=== PATIENT | male | born 1980 | race Caucasian/White ===

== ENCOUNTER 2017-05-24 18:34 | Emergency (ER) | payer BC, OTHER ==
[2017-05-24] MEDS ORDERED: Sodium Chloride 0.9% 1,000 ML IV ONE (19:07)
[2017-05-24] MEDS ORDERED: Ketorolac 30 MG/ML SDV IVPUSH ONE (19:07)
[2017-05-24] MEDS ORDERED: Ondansetron 4 MG/2 ML SDV IVPUSH ONE ×2 (19:07→20:46)
--- NOTE | 2017-05-24 19:08 | EDM.PDOC ---
ED HPI GENERAL MEDICAL PROBLEM - General Chief Complaint: Flank Pain Stated Complaint: RT ABDOMINAL/BACK PAIN Time Seen by Provider: 05/24/17 19:08 Source of Information: Reports: Patient - History of Present Illness INITIAL COMMENTS - FREE TEXT/NARRATIVE: HISTORY AND PHYSICAL: History of present illness: [Patient presents with right flank pain radiating around the right abdomen rates 8 out of 10 with nausea and vomiting on arrival no fever chills sweats ] Review of systems: As per history of present illness and below otherwise all systems reviewed and negative. Past medical history: As per history of present illness and as reviewed below otherwise noncontributory. Surgical history: As per history of present illness and as reviewed below otherwise noncontributory. Social history: No reported history of drug or alcohol abuse. Family history: As per history of present illness and as reviewed below otherwise noncontributory. Physical exam: HEENT: Atraumatic, normocephalic, pupils reactive, negative for conjunctival pallor or scleral icterus, mucous membranes moist, throat clear, neck supple, nontender, trachea midline. Lungs: Clear to auscultation, breath sounds equal bilaterally, chest nontender. Heart: S1S2, regular, negative for clicks, rubs, or JVD. Abdomen: Soft, nondistended, mild tenderness right upper quadrant on deep palpation no guarding or rebound. Negative for masses or hepatosplenomegaly. Negative for costovertebral tenderness. Pelvis: Stable nontender. Genitourinary: Deferred. Rectal: Deferred. Extremities: Atraumatic, negative for cords or calf pain. Neurovascular unremarkable. Neuro: Awake, alert, oriented. Cranial nerves II through XII unremarkable. Cerebellum unremarkable. Motor and sensory unremarkable throughout. Exam nonfocal. Diagnostics: [CBC CMP UA with culture CT abdomen with and without contrast ] Therapeutics: [Normal saline 1 L Zofran 8 mg IV Toradol 30 mg IV Solu-Medrol 125 mg IV Flomax 0 point 4 milligrams by mouth [place] Zofran Filter urine Wrist current stone for pathology with primary care or urology ] Impression: 3 mm stone right UVJ [Right flank pain] Definitive disposition and diagnosis as appropriate pending reevaluation and review of above. rt flank Pain Score (Numeric/FACES): 8 - Related Data Allergies Allergy/AdvReac Type Severity Reaction Status Date / Time No Known Allergies Allergy Verified 05/24/17 18:53 Home Meds: Home Meds . [No Known Home Meds] 05/24/17 [History] Past Medical History - Past Surgical History HEENT Surgical History: Reports: Tonsillectomy GI Surgical History: Reports: Other (See Below) Other GI Surgeries/Procedures: intestinal removal. Musculoskeletal Surgical History: Reports: Other (See Below) Other Musculoskeletal Surgeries/Procedures:: Rotar cuff Social & Family History - Family History Family Medical History: Noncontributory - Tobacco Use Smoking Status *Q: Never Smoker - Recreational Drug Use Recreational Drug Use: No ED ROS GENERAL - Review of Systems Review Of Systems: ROS reveals no pertinent complaints other than HPI. ED EXAM, GENERAL - Physical Exam Exam: See Below Course - Vital Signs Last Recorded V/S: Last Vital Signs Temp 97.5 F 05/24/17 21:38 Pulse 87 05/24/17 21:38 Resp 17 05/24/17 21:38 BP 143/78 H 05/24/17 21:38 Pulse Ox 97 05/24/17 21:38 - Orders/Labs/Meds Orders: Active Orders 24 hr Category Date Time Status Abdomen Pelvis w wo Cont [CT] Stat Exams 05/24/17 19:07 Taken CULTURE URINE [RM] Stat Lab 05/24/17 22:02 Received Labs: Laboratory Tests 05/24/17 05/24/17 05/24/17 Range/Units 19:41 19:41 22:02 WBC 10.03 (4.0-11.0) K/uL RBC 5.37 (4.50-5.90) M/uL Hgb 16.3 (13.0-17.0) g/dL Hct 46.7 (38.0-50.0) % MCV 87.0 (80.0-98.0) fL MCH 30.4 (27.0-32.0) pg MCHC 34.9 (31.0-37.0) g/dL RDW Std Deviation 43.0 (28.0-62.0) fl RDW Coeff of Sammy 14 (11.0-15.0) % Plt Count 324 (150-400) K/uL MPV 9.50 (7.40-12.00) fL Neut % (Auto) 65.0 (48.0-80.0) % Lymph % (Auto) 25.3 (16.0-40.0) % [place] % (Auto) 6.9 (0.0-15.0) % Eos % (Auto) 2.5 (0.0-7.0) % Baso % (Auto) 0.3 (0.0-1.5) % Neut # (Auto) 6.5 H (1.4-5.7) K/uL Lymph # (Auto) 2.5 H (0.6-2.4) K/uL [place]pie # (Auto) 0.7 (0.0-0.8) K/uL Eos # (Auto) 0.3 (0.0-0.7) K/uL Baso # (Auto) 0.0 (0.0-0.1) K/uL Nucleated RBC % 0.0 /100WBC Nucleated RBCs # 0 K/uL Sodium 142 (136-146) mmol/L Potassium 3.8 (3.5-5.1) mmol/L Chloride 108 (98-110) mmol/L Carbon Dioxide 23 (21-31) mmol/L BUN 14 (6.0-23.0) mg/dL Creatinine 1.3 (0.6-1.5) mg/dL Est Cr Clr Drug Dosing 78.56 mL/min Estimated GFR (MDRD) > 60.0 ml/min Glucose 109 (60-110) mg/dL Calcium 9.4 (8.8-10.8) mg/dL Total Bilirubin 0.9 (0.1-1.5) mg/dL AST 53 H (5-40) IU/L ALT 104 H (8-54) IU/L Alkaline Phosphatase 59 (40-150) Troponin I < 0.10 (0.0-0.29) NG/ML Total Protein 7.6 (6.0-8.0) g/dL Albumin 4.6 (3.5-5.0) g/dL Globulin 3.0 (2.0-3.5) g/dL Albumin/Globulin Ratio 1.5 (1.3-2.8) Amylase 37 (10-90) U/L Lipase 17 (7-80) U/L Urine Color YELLOW Urine Appearance HAZY Urine pH 6.0 (5.0-8.0) Ur Specific [place] 1.010 (1.001-1.035) Urine Protein NEGATIVE (NEGATIVE) mg/dL Urine Glucose (UA) NEGATIVE (NEGATIVE) mg/dL Urine Ketones 15 H (NEGATIVE) mg/dL Urine Occult Blood LARGE H (NEGATIVE) Urine Nitrite NEGATIVE (NEGATIVE) Urine Bilirubin NEGATIVE (NEGATIVE) Urine Urobilinogen 0.2 (<2.0) EU/dL Ur Leukocyte Esterase NEGATIVE (NEGATIVE) Urine RBC 15-20 (0-2/HPF) Urine WBC 0-1 (0-5/HPF) Ur Epithelial Cells RARE (NONE-FEW) Urine Bacteria FEW (NEGATIVE) Urine Yeast RARE Meds: Medications Discontinued Medications Generic Name Dose Route Start Last Admin Trade Name Freq PRN Reason Stop Dose Admin Sodium Chloride 1,000 mls @ 999 mls/hr 05/24/17 19:07 05/24/17 19:41 Normal Saline IV 05/24/17 20:07 999 mls/hr STAT ONE Administration Iopamidol 100 ml 05/24/17 20:26 05/24/17 20:32 Isovue Multipack-370 (76%) IVPUSH 05/24/17 20:27 100 ml ONETIME ONE Administration Ketorolac Tromethamine 30 mg 05/24/17 19:07 05/24/17 19:41 Toradol IVPUSH 05/24/17 19:08 30 mg ONETIME ONE Administration Methylprednisolone Sodium Succinate 125 mg 05/24/17 21:47 05/24/17 22:20 Solu-Medrol IVPUSH 05/24/17 21:48 125 mg ONETIME ONE Administration Morphine Sulfate 2 mg 05/24/17 19:46 05/24/17 19:54 Morphine IVPUSH 05/24/17 19:47 2 mg ONETIME ONE Administration Morphine Sulfate 2 mg 05/24/17 20:39 05/24/17 20:44 Morphine IVPUSH 05/24/17 20:40 2 mg ONETIME ONE Administration Ondansetron HCl 8 mg 05/24/17 19:07 05/24/17 19:41 Zofran IVPUSH 05/24/17 19:08 8 mg ONETIME ONE Administration Ondansetron HCl 4 mg 05/24/17 20:46 05/24/17 20:48 Zofran IVPUSH 05/24/17 20:47 4 mg ONETIME ONE Administration Tamsulosin HCl 0.4 mg 05/24/17 21:47 05/24/17 22:20 Flomax PO 05/24/17 21:48 0.4 mg ONETIME ONE Administration Departure - Departure Time of Disposition: 22:25 Disposition: Home, Self-Care 01 Condition: Good Clinical Impression: Ureteral stone - Discharge Information Referrals: PCP,None [Primary Care Provider] - Forms: ED Department Discharge Additional Instructions: Medication as prescribed Return if symptoms persist or worsen or if fever chills sweats develop intractable vomiting or intractable pain with also prompt return Filter urine return stone for pathology to primary care or urology numbers are provided below [facility] - Primary Care [address] [place], [place] [id number] [facility] - Urology [address] [place] [address] The following information is given to patients seen in the emergency department who are being discharged to home. This information is to outline your options for follow-up care. We provide all patients seen in our emergency department with a follow-up referral. The need for follow-up, as well as the timing and circumstances, are variable depending upon the specifics of your emergency department visit. If you don't have a primary care physician on staff, we will provide you with a referral. We always advise you to contact your personal physician following an emergency department visit to inform them of the circumstance of the visit and for follow-up with them and/or the need for any referrals to a consulting specialist. The emergency department will also refer you to a specialist when appropriate. This referral assures that you have the opportunity for follow-up care with a specialist. All of these measure are taken in an effort to provide you with optimal care, which includes your follow-up. Under all circumstances we always encourage you to contact your private physician who remains a resource for coordinating your care. When calling for follow-up care, please make the office aware that this follow-up is from your recent emergency room visit. If for any reason you are refused follow-up, please contact the [facility] emergency department at and asked to speak to the emergency department charge nurse. - My Orders Last 24 Hours: My Active Orders 05/24/17 19:07 Abdomen Pelvis w wo Cont [CT] Stat 05/24/17 22:02 CULTURE URINE [RM] Stat - Assessment/Plan Last 24 Hours: My Active Orders 05/24/17 19:07 Abdomen Pelvis w wo Cont [CT] Stat 05/24/17 22:02 CULTURE URINE [RM] Stat
[2017-05-24] MEDS ORDERED: Morphine 2 MG/ML Syringe IVPUSH ONE ×2 (19:46→20:39)
[2017-05-24 20:07] LABS: CHLORIDE,CL 108 mmol/L (98-110); SODIUM,NA 142 mmol/L (136-146)
[2017-05-24] MEDS ORDERED: Iopamidol 755 MG/ML 200 ML Multipack Bottle IVPUSH ONE (20:26)
[2017-05-24] MEDS ORDERED: Tamsulosin 0.4 MG Cap.ER PO ONE (21:47)
[2017-05-24] MEDS ORDERED: methylPREDNISolone Sodium Succinate 125 MG/2 ML SDV IVPUSH ONE (21:47)
--- NOTE | 2017-05-25 15:59 | CT ---
EXAM DATE: 05/24/17 PATIENT'S AGE: 36 Patient: ALLI NARANJO Facility: [place], [place] Site . Site : [id number] Study: CT Abdomen/Pelvis W/ and W/O Cont [id number]/[id number] 8:48:00 PM Ordering Physician: Emmanuel Mcguire Final Report: Indication: Right flank pain. Technique: Contiguous axial images were obtained from the domes the diaphragm through the pubic symphysis. Intravenous contrast was not administered as the study is performed according to stone protocol. 3D rendering, including image post processing was performed on an independent workstation. Findings: There is a mild right hydro ureter and a 0.3 cm stone is noted in the distal ureter proximal to the right UV junction. The unenhanced left kidney, left ureter and urinary bladder are unremarkable. The prostate gland and seminal vesicles are unremarkable. The liver is diffusely decreased in attenuation relative to the spleen reflecting fatty infiltration. The gallbladder, pancreas and spleen are unremarkable. A splenule is noted adjacent to the spleen. There is a ventral/umbilical hernia. Surgical chain sutures are noted in the sigmoid colon and there are diverticular changes noted of the descending colon and sigmoid colon without CT evidence of diverticulitis. There is no abdominal or pelvic ascites. Impression: 1. 0.3 cm distal right ureteral stone just proximal to the UV right UV junction with mild right hydro ureter. 2. Hepatic steatosis. 3. Diverticulosis without CT evidence of diverticulitis. Please note that all CT scans at this facility use dose modulation, iterative reconstruction, and/or weight-based dosing when appropriate to reduce radiation dose to as low as reasonably achievable. Dictated by Veronica Mensah MD @ May 24 2017 9:21PM (Electronic Signature) Report Signed by Proxy. RC
== END 2017-05-24 22:36 | disposition home or self-care (01) ==
LOC: MW.ED 18:34
DX: N20.1 Calculus of ureter (principal)
CPT/HCPCS: 74178; 80053; 81001; 82150; 83690; 84484; 85025; 87086; 96361; 96374; 96375; 96376; 99284; A9270; J1885; J2270; J2405; J2930; J7040; Q9967

== ENCOUNTER 2017-05-26 05:52 | Emergency (ER) | payer OTHER ==
[2017-05-26] MEDS ORDERED: HYDROmorphone 2 MG/ML Syringe IVPUSH ONE ×2 (06:06→06:50)
[2017-05-26] MEDS ORDERED: Ondansetron 4 MG/2 ML SDV IVPUSH ONE (06:06)
[2017-05-26] MEDS ORDERED: Sodium Chloride 0.9% 1,000 ML IV ONE ×2 (06:06→08:49)
[2017-05-26] MEDS ORDERED: methylPREDNISolone Sodium Succinate 125 MG/2 ML SDV IVPUSH ONE (06:07)
[2017-05-26] MEDS ORDERED: Tamsulosin 0.4 MG Cap.ER PO ONE (06:07)
--- NOTE | 2017-05-26 06:11 | EDM.PDOC ---
ED HPI GENERAL MEDICAL PROBLEM - General Chief Complaint: Flank Pain Stated Complaint: KIDNEY STONES Time Seen by Provider: 05/26/17 06:08 Source of Information: Reports: Patient - History of Present Illness INITIAL COMMENTS - FREE TEXT/NARRATIVE: HISTORY AND PHYSICAL: History of present illness: [Presents with pain in the right lower quadrant he was seen the evening of over 3 mm stone in the right UVJ a yesterday however acutely began again this evening's 8 out of 10 he is taken hydrocodone shortly after 5 AM with no benefit No fever nausea vomiting chills sweats ] Review of systems: As per history of present illness and below otherwise all systems reviewed and negative. Past medical history: As per history of present illness and as reviewed below otherwise noncontributory. Surgical history: As per history of present illness and as reviewed below otherwise noncontributory. Social history: No reported history of drug or alcohol abuse. Family history: As per history of present illness and as reviewed below otherwise noncontributory. Physical exam: HEENT: Atraumatic, normocephalic, pupils reactive, negative for conjunctival pallor or scleral icterus, mucous membranes moist, throat clear, neck supple, nontender, trachea midline. Lungs: Clear to auscultation, breath sounds equal bilaterally, chest nontender. Heart: S1S2, regular, negative for clicks, rubs, or JVD. Abdomen: Soft, nondistended, nontender. Negative for masses or hepatosplenomegaly. Negative for costovertebral tenderness. Pelvis: Stable nontender. Genitourinary: Deferred. Rectal: Deferred. Extremities: Atraumatic, negative for cords or calf pain. Neurovascular unremarkable. Neuro: Awake, alert, oriented. Cranial nerves II through XII unremarkable. Cerebellum unremarkable. Motor and sensory unremarkable throughout. Exam nonfocal. Diagnostics: cbc BMP UA abd And pelvis ct on file from 05/24/17 ] Therapeutics: [1 L NS flomax solumedrol zofran dilauded milligrams followed by 2 mg IV signed out for pain control, disposition, further treatment and eval by dr pretty ] Impression: pain [3mm uretal stone-right UVJ-previous ct 05/24/17] Definitive disposition and diagnosis as appropriate pending reevaluation and review of above. Right Flank Pain Score (Numeric/FACES): 8 - Related Data Allergies Allergy/AdvReac Type Severity Reaction Status Date / Time No Known Allergies Allergy Verified 05/26/17 06:07 Home Meds: Home Meds . [No Known Home Meds] 05/24/17 [History] Past Medical History - Past Surgical History HEENT Surgical History: Reports: Tonsillectomy GI Surgical History: Reports: Other (See Below) Other GI Surgeries/Procedures: intestinal removal. Musculoskeletal Surgical History: Reports: Other (See Below) Other Musculoskeletal Surgeries/Procedures:: Rotar cuff Social & Family History - Family History Family Medical History: Noncontributory - Tobacco Use Smoking Status *Q: Never Smoker - Recreational Drug Use Recreational Drug Use: No ED ROS GENERAL - Review of Systems Review Of Systems: ROS reveals no pertinent complaints other than HPI. ED EXAM, GENERAL - Physical Exam Exam: See Below Course - Vital Signs Last Recorded V/S: Last Vital Signs Temp 97.7 F 05/26/17 06:04 Pulse 83 05/26/17 06:04 Resp 17 05/26/17 06:04 BP 191/141 H 05/26/17 06:04 Pulse Ox 98 05/26/17 06:04 - Orders/Labs/Meds Orders: Active Orders 24 hr Category Date Time Status BASIC METABOLIC PANEL,BMP [CHEM] Stat Lab 05/26/17 06:14 Received UA W/MICROSCOPIC [URIN] Stat Lab 05/26/17 06:07 Uncollected Sodium Chloride 0.9% [Normal Saline] 1,000 ml Med 05/26/17 06:06 Active IV STAT Medication Orders Sodium Chloride (Normal Saline) 1,000 mls @ 999 mls/hr IV STAT ONE Stop: 05/26/17 07:06 Last Admin: 05/26/17 06:23 Dose: 999 mls/hr Labs: Laboratory Tests 05/26/17 Range/Units 06:14 WBC 10.23 (4.0-11.0) K/uL RBC 5.28 (4.50-5.90) M/uL Hgb 15.7 (13.0-17.0) g/dL Hct 46.6 (38.0-50.0) % MCV 88.3 (80.0-98.0) fL MCH 29.7 (27.0-32.0) pg MCHC 33.7 (31.0-37.0) g/dL RDW Std Deviation 44.7 (28.0-62.0) fl RDW Coeff of Sammy 14 (11.0-15.0) % Plt Count 333 (150-400) K/uL MPV 9.50 (7.40-12.00) fL Neut % (Auto) 45.2 L (48.0-80.0) % Lymph % (Auto) 43.5 H (16.0-40.0) % [place] % (Auto) 9.8 (0.0-15.0) % Eos % (Auto) 1.3 (0.0-7.0) % Baso % (Auto) 0.2 (0.0-1.5) % Neut # (Auto) 4.6 (1.4-5.7) K/uL Lymph # (Auto) 4.5 H (0.6-2.4) K/uL [place] # (Auto) 1.0 H (0.0-0.8) K/uL Eos # (Auto) 0.1 (0.0-0.7) K/uL Baso # (Auto) 0.0 (0.0-0.1) K/uL Nucleated RBC % 0.0 /100WBC Nucleated RBCs # 0 K/uL Meds: Medications Generic Name Dose Route Start Last Admin Trade Name Freq PRN Reason Stop Dose Admin Sodium Chloride 1,000 mls @ 999 mls/hr 05/26/17 06:06 05/26/17 06:23 Normal Saline IV 05/26/17 07:06 999 mls/hr STAT ONE Administration Discontinued Medications Generic Name Dose Route Start Last Admin Trade Name Freq PRN Reason Stop Dose Admin Hydromorphone HCl 1 mg 05/26/17 06:06 05/26/17 06:24 Dilaudid IVPUSH 05/26/17 06:07 1 mg ONETIME ONE Administration Hydromorphone HCl 2 mg 05/26/17 06:50 Dilaudid IVPUSH 05/26/17 06:51 ONETIME ONE Methylprednisolone Sodium Succinate 125 mg 05/26/17 06:07 05/26/17 06:25 Solu-Medrol IVPUSH 05/26/17 06:08 125 mg ONETIME ONE Administration Ondansetron HCl 8 mg 05/26/17 06:06 05/26/17 06:23 Zofran IVPUSH 05/26/17 06:07 8 mg ONETIME ONE Administration Tamsulosin HCl 0.4 mg 05/26/17 06:07 05/26/17 06:25 Flomax PO 05/26/17 06:08 0.4 mg ONETIME ONE Administration Departure - Departure Time of Disposition: 06:54 Disposition: Still A Patient 30 Condition: Fair Clinical Impression: Pain, Ureteral stone - Discharge Information Referrals: PCP,None [Primary Care Provider] - Forms: ED Department Discharge - My Orders Last 24 Hours: My Active Orders 05/26/17 06:06 Sodium Chloride 0.9% [Normal Saline] 1,000 ml IV STAT 05/26/17 06:07 UA W/MICROSCOPIC [URIN] Stat 05/26/17 06:14 BASIC METABOLIC PANEL,BMP [CHEM] Stat - Assessment/Plan Last 24 Hours: My Active Orders 05/26/17 06:06 Sodium Chloride 0.9% [Normal Saline] 1,000 ml IV STAT 05/26/17 06:07 UA W/MICROSCOPIC [URIN] Stat 05/26/17 06:14 BASIC METABOLIC PANEL,BMP [CHEM] Stat
[2017-05-26 06:58] LABS: CHLORIDE,CL 108 mmol/L (98-110); SODIUM,NA 142 mmol/L (136-146)
[2017-05-26] MEDS ORDERED: Ketorolac 30 MG/ML SDV IVPUSH ONE (07:34)
[2017-05-26] MEDS ORDERED: Hyoscyamine 0.125 MG Tab.SL SL ONE (07:35)
[2017-05-26] MEDS ORDERED: Morphine 4 MG/ML Syringe IVPUSH ONE (08:46)
== END 2017-05-26 11:11 | disposition home or self-care (01) ==
LOC: MW.ED 05:52
DX: N20.1 Calculus of ureter (principal)
CPT/HCPCS: 80048; 81001; 85025; 96361; 96374; 96375; 99284; A9270; J1170; J1885; J2270; J2405; J2930; J7040; 99283